=== PATIENT | female | born 1965 | race Caucasian/White ===

== ENCOUNTER 2017-11-11 06:41 | Day surgery (SDC) | payer SELFPAY ==
[2017-11-04 14:52] VITALS: BMI 26.6
[~2017-11-11 06:41] MED LIST: LACTATED RINGERS SOLUTION 1,000 ML IV SCH; ONDANSETRON 4 MG/2 ML VIAL IVPUSH PRN; PROMETHAZINE HCL 25 MG/1 ML VIAL IVPB PRN; oxyCODONE HCL 5 MG TABLET PO PRN
[2017-11-11] MEDS ORDERED: BACITRACIN 15 GM TUBE TOPICAL OINTMENT ONE ×3 (07:18→17:07)
[2017-11-11] MEDS ORDERED: LIDOCAINE HCL 1%, 10 MG/ML (20ML VIAL) ONE ×2 (07:18→07:21)
[2017-11-11] MEDS ORDERED: LIDOCAINE 1%/EPI 1:100000 (20 ML MULTI DOSE VIAL) ONE ×2 (07:18→07:21)
[2017-11-11] MEDS ORDERED: EPINEPHrine/PF 1 MG/1 ML (1:1,000) AMPULE ONE ×2 (07:19→07:21)
[2017-11-11] MEDS ORDERED: PROPOFOL 20 ML ONE ×11 (07:22→16:54)
[2017-11-11] MEDS ORDERED: SUCCINYLCHOLINE CHLORIDE 200 MG/10 ML VIAL ONE (07:23)
[2017-11-11] MEDS ORDERED: ROCURONIUM BROMIDE 50 MG/5 ML VIAL ONE ×2 (07:24)
[2017-11-11] MEDS ORDERED: ceFAZolin SODIUM 1 GM VIAL ONE ×2 (07:25)
[2017-11-11] MEDS ORDERED: ACETAMINOPHEN INJECTION 200 ML IVPB ONE (07:30)
[2017-11-11] MEDS ORDERED: SEVOFLURANE 250 ML BTL ONE (07:30)
[2017-11-11] MEDS ORDERED: DESFLURANE GAS 240 ML BOTTLE IH ONE (07:30)
[2017-11-11] MEDS ORDERED: DEXAMETHASONE SOD PHOSPHATE 4 MG/1 ML VIAL ONE (07:31)
[2017-11-11] MEDS ORDERED: ONDANSETRON 4 MG/2 ML VIAL ONE ×2 (07:31→11:02)
[2017-11-11] MEDS ORDERED: fentaNYL CITRATE 250 MCG/5 ML VIAL ONE ×2 (07:32→09:28)
[2017-11-11] MEDS ORDERED: MIDAZOLAM HCL 2 MG/2 ML SINGLE DOSE VIAL ONE ×2 (07:33)
[2017-11-11] MEDS ORDERED: SCOPOLAMINE HYDROBROMIDE 1 PATCH PATCH.TD72 ONE (07:47)
[2017-11-11] MEDS ORDERED: POVIDONE-IODINE 5% OPHTHALMIC PREP 30 ML SOLUTION ONE (08:59)
[2017-11-11] MEDS ORDERED: ePHEDrine SULFATE 50 MG/1 ML AMPULE ONE ×3 (09:37→11:07)
[2017-11-11] MEDS ORDERED: PHENYLEPHRINE HCL 10 MG/1 ML SINGLE DOSE VIAL ONE (13:12)
[2017-11-11] MEDS ORDERED: BACITRACIN/POLYMYXIN OPH OINT 3.5 GM TUBE ONE (15:23)
[2017-11-11 20:21] VITALS: TEMP 98.4
[2017-11-11 20:24] VITALS: BP 110/68; PULSE 85
== END 2017-11-11 20:10 | disposition home or self-care (01) ==
LOC: FASU 06:41
PROVIDERS: ATTEND Surgery
PROC: 0J043ZZ Alteration of Right Neck Subcutaneous Tissue and Fascia, Percutaneous Approach (ICD-10-PCS; 2017-11-11)
PROC: 0W020ZZ Alteration of Face, Open Approach (ICD-10-PCS; principal; 2017-11-11 09:31)
PROC: 0J083ZZ Alteration of Abdomen Subcutaneous Tissue and Fascia, Percutaneous Approach (ICD-10-PCS; 2017-11-11 09:31)
PROC: 0J053ZZ Alteration of Left Neck Subcutaneous Tissue and Fascia, Percutaneous Approach (ICD-10-PCS; 2017-11-11 09:31)
DX: Z41.1 Encounter for cosmetic surgery (principal)
CPT/HCPCS: 84703; 94760; J0131